=== PATIENT | female | born 1980 | race African-American/Black ===

== ENCOUNTER → 2022-01-30 | Outpatient (CLI) | payer OTHER ==
[~2022-01-30] MED LIST: IOPAMIDOL 370 MG/ML 100 ML INFUS..BTL INJ ONE
== END ==
LOC: CT 16:07
PROVIDERS: ATTEND Internal Medicine Gastroenterology
DX: R10.13 Epigastric pain (principal)
CPT/HCPCS: 74177; Q9967

== ENCOUNTER → 2022-02-12 | Outpatient (CLI) | payer OTHER | LOC: NM 08:10 | PROVIDERS: ATTEND Internal Medicine Gastroenterology | DX: K82.0 Obstruction of gallbladder (principal) | CPT/HCPCS: 36415; 78227; 81025; A9537 ==